=== PATIENT | female | born 1975 | race Asian ===

== ENCOUNTER 2017-03-13 10:22 | Inpatient (IN) | payer SELFPAY ==
[~2017-03-13] VITALS: Ht 156 cm; Wt 63.5 kg
[2017-03-14] MEDS ORDERED: PREN1SGL25 PO (01:14)
[2017-03-14] MEDS ORDERED: IRON65TA11 PO (01:15)
[2017-03-14] MEDS ORDERED: METHYLERGONOVINE 0.2 MG/ML AMP IM PRN ×2 (01:15→19:45)
[2017-03-14] MEDS ORDERED: CARBOPROST 250 MCG/ML AMP IM PRN (01:15)
[2017-03-14] MEDS ORDERED: LACTATED RINGERS 1,000 ML IV SCH (01:15)
[2017-03-14 02:41] LABS: BASOPHILS % (AUTO) 0.3 % (0.0-2.0); EOSINOPHILS # (AUTO) 0.1 K/uL (0-0.4); EOSINOPHILS % (AUTO) 1.3 % (0.0-4.0); HEMATOCRIT 39.6 % (36-48); HEMOGLOBIN 13.1 g/dL (12.0-16.0); LYMPHOCYTES # (AUTO) 2.1 K/uL (2.5-16.5); LYMPHOCYTES % (AUTO) 25.3 % (20.5-51.1); MEAN CORPUSCULAR HEMOGLOBIN 30 pg (27-31); MEAN CORPUSCULAR HGB CONC 33 g/dL (33-37); MEAN CORPUSCULAR VOLUME 92 fL (80-94); MONOCYTES # (AUTO) 0.7 K/uL (0.8-1.0); MONOCYTES % (AUTO) 8.1 % (1.7-9.3); NEUTROPHILS # (AUTO) 5.2 K/uL (1.8-7.7); PLATELET COUNT (AUTO) 183 K/uL (140-450); RED BLOOD CELL COUNT(AUTO) 4.31 MIL/uL (4.20-5.40); RED CELL DISTRIBUTION WIDTH 14.8 % (11.6-13.7); WHITE BLOOD COUNT (AUTO) 8.1 K/uL (4.8-10.8)
[2017-03-14 02:58] LABS: APPEARANCE,URINE HAZY (CLEAR); BILIRUBIN,URINE NEGATIVE (NEGATIVE); BLOOD, URINE NEGATIVE (NEGATIVE); COLOR,URINE YELLOW (YELLOW); LEUKOCYTE ESTERASE ,URINE NEGATIVE (NEGATIVE); NITRITE, URINE NEGATIVE (NEGATIVE); PH,URINE 6.5 (5.0-9.0); PROTEIN,URINE NEGATIVE (NEGATIVE); UGLUCOSE NEGATIVE (NEGATIVE); UROBILINOGEN,URINE 0.2 EU/dL (0.2 - 1)
[2017-03-14 02:59] VITALS: BP 107/71
[2017-03-14 03:08] LABS: BACTERIA,URINE 4+ /HPF (None Seen); MUCUS,URINE 3+ /LPF (None Seen); RBC,URINE 0-5 (RARE) /HPF (0-5); WBC,URINE 0-5 (RARE) /HPF (0-5)
[2017-03-14] MEDS ORDERED: ceFAZolin 1,000 MG VIAL ONE (05:59)
[2017-03-14] MEDS ORDERED: TRIAMCINOLONE 10 MG/ML 5ML VIAL ONE (06:12)
[2017-03-14] MEDS ORDERED: OXYTOCIN 10 UNITS/ML VIAL ONE (06:13)
[2017-03-14] MEDS ORDERED: METHYLERGONOVINE 0.2 MG/ML AMP ONE (06:13)
[2017-03-14] MEDS ORDERED: CITRIC ACID/SODIUM CITRATE 30 ML UDC PO ONE (06:25)
[2017-03-14] MEDS ORDERED: ePHEDrine 50 MG/ML VIAL IV ONE (06:27)
[2017-03-14] MEDS ORDERED: ESMOLOL 100 MG/10 ML VIAL IV ONE (06:27)
[2017-03-14] MEDS ORDERED: OXYTOCIN 10 UNITS/ML VIAL IM ONE (06:27)
[2017-03-14] MEDS ORDERED: CITRIC ACID/SODIUM CITRATE 30 ML UDC ONE (06:29)
[2017-03-14] MEDS ORDERED: MORPHINE PRES FREE 10 MG/10 ML AMP IV ONE (06:35)
[2017-03-14] MEDS ORDERED: fentaNYL 0.05 MG/ML VIAL ONE (06:35)
[2017-03-14] MEDS ORDERED: diphenhydrAMINE 50 MG/ML VIAL IVP PRN (06:55)
[2017-03-14] MEDS ORDERED: NALOXONE 0.4 MG/ML VIAL IVP PRN ×3 (06:55)
[2017-03-14] MEDS ORDERED: NALBUPHINE 10 MG/ML AMP IVP PRN (06:55)
[2017-03-14] MEDS ORDERED: ONDANSETRON 4 MG/2 ML VIAL IVP PRN ×2 (06:55)
[2017-03-14] MEDS ORDERED: KETOROLAC 60 MG/2 ML VIAL IM PRN (06:55)
[2017-03-14] MEDS ORDERED: ONDANSETRON 4 MG/2 ML VIAL ONE (07:09)
[2017-03-14] MEDS ORDERED: OXYTOCIN 20 UNITS/LR PREMIX 1,000 ML IV ONE (07:10)
--- NOTE | 2017-03-14 09:18 | NUR ---
PATIENT HAS BEEN SCREENED AND CATEGORIZED LOW NUTRITION RISK. PATIENT WILL BE SEEN WITHIN 7 DAYS OF ADMISSION. 03/20/[address]
[2017-03-14] MEDS: OXYTOCIN 20 UNITS/LR PREMIX 1,000 ML IV PRN (15:53)
[2017-03-14] MEDS ORDERED: MEASLES, MUMPS, AND RUBELLA 1 VIAL SQVAC PRN (19:45)
[2017-03-14] MEDS ORDERED: oxyCODONE/APAP 5/325 MG 1 TAB TAB PO PRN (19:45)
[2017-03-14] MEDS ORDERED: TRIMETHOBENZAMIDE 200 MG/2 ML SYR IM PRN (19:45)
[2017-03-14] MEDS ORDERED: TEMAZEPAM 15 MG CAP PO PRN (19:45)
[2017-03-14] MEDS ORDERED: SIMETHICONE 80 MG TAB.CHEW PO PRN (19:45)
[2017-03-14] MEDS ORDERED: IBUPROFEN 800 MG TAB PO PRN (19:45)
[2017-03-14] MEDS ORDERED: HYDROcodone/APAP 5/325 MG 1 TAB TAB PO PRN (19:45)
[2017-03-14] MEDS: DOCUSATE SOD/SENNA 50/8.6 MG 1 TAB PO SCH (21:00)
[2017-03-15] MEDS: OXYTOCIN 20 UNITS/LR PREMIX 1,000 ML IV PRN (00:01)
[2017-03-15 07:06] LABS: HEMATOCRIT 35.8 % (36-48); HEMOGLOBIN 11.8 g/dL (12.0-16.0); MEAN CORPUSCULAR HEMOGLOBIN 30 pg (27-31); MEAN CORPUSCULAR HGB CONC 33 g/dL (33-37); MEAN CORPUSCULAR VOLUME 91 fL (80-94); PLATELET COUNT (AUTO) 155 K/uL (140-450); RED BLOOD CELL COUNT(AUTO) 3.93 MIL/uL (4.20-5.40); RED CELL DISTRIBUTION WIDTH 14.8 % (11.6-13.7); WHITE BLOOD COUNT (AUTO) 15.4 K/uL (4.8-10.8)
[2017-03-15 07:20] LABS: LYMPHOCYTES % (MANUAL) 15 % (20-46); MONOCYTES % (MANUAL) 2 % (5-12); NEUTROPHILS % (MANUAL) 83 (43-65)
[2017-03-15] MEDS: DOCUSATE SOD/SENNA 50/8.6 MG 1 TAB PO SCH (21:00)
[2017-03-16] MEDS: DOCUSATE SOD/SENNA 50/8.6 MG 1 TAB PO SCH (22:11)
== END 2017-03-17 11:55 | disposition home or self-care (01) | DRG 766 ==
LOC: MLD 03-14 00:34 → MFCC 03-14 06:51
PROVIDERS: ADMIT Obstetrics & Gynecology; ATTEND Obstetrics & Gynecology
PROC: 10D00Z1 Extraction of Products of Conception, Low, Open Approach (ICD-10-PCS; principal; 2017-03-14 06:00)
PROC: 3E0234Z Introduction of Serum, Toxoid and Vaccine into Muscle, Percutaneous Approach (ICD-10-PCS; 2017-03-16)
PROC: 3E0234Z Introduction of Serum, Toxoid and Vaccine into Muscle, Percutaneous Approach (ICD-10-PCS; 2017-03-16)
DX: O34.211 Maternal care for low transverse scar from previous cesarean delivery (principal); Z37.0 Single live birth; O09.523 Supervision of elderly multigravida, third trimester; Z3A.39 39 weeks gestation of pregnancy; Z23 Encounter for immunization; Z86.32 Personal history of gestational diabetes
CPT/HCPCS: 36415; 81001; 82947; 85025; 86592; 86886; 86900; 86901; 87086; 90707; 90715; J0690; J2210; J2270; J2405; J2590; J3010; J3301; J3490; J7060; J7120